=== PATIENT | female | born 1995 | race Hispanic/Latino ===

== ENCOUNTER 2017-10-12 21:28 | Emergency (ER) | payer SELFPAY ==
[2017-10-12 22:19] LABS: Bilirubin Negative (Negative); Blood, Urine Large (Negative); Clarity CLOUDY (Clear); Glucose, Urine (Dipstick) Negative (Negative); Leukocyte Moderate (Negative); Nitrite Negative (Negative); Protein, Urine (Dipstick) 30 mg/dL (Neg-Trace); Specific Gravity, Urine 1.013 (1.002-1.036); Urobilinogen 0.2 mg/dL (0.2-1.0)
[2017-10-12 22:20] LABS: Pregnancy Test - Urine (BHCG) Negative (Negative); Pregu Control Background? CLEAR/WHITE (CLR/WHITE); Pregu Control Bar Appear? YES (CONTROL BAR)
[2017-10-12 22:22] LABS: Specific Gravity 1.013 (1.002-1.036)
[2017-10-12 22:23] LABS: Bacteria/HPF None Seen HPF (None Seen); Hyaline Casts/LPF 0-3 HYALINE CAST LPF (0-3 Hyaline); RBC/HPF GREATER THAN 50-TNTC HPF (0-3); Squamous Epithelial 0-3 HPF (0-3); Yeast-AUWi Flag 20.9 (0-25.0)
== END 2017-10-12 23:03 | disposition home or self-care (01) ==
LOC: ERS 21:28
DX: N12 Tubulo-interstitial nephritis, not specified as acute or chronic (principal)
CPT/HCPCS: 81003; 81015; 81025; 87077; 87086; 87186; 94760

== ENCOUNTER 2019-07-24 16:16 | Emergency (ER) | payer MEDICAID, OTHER, SELFPAY ==
[2019-07-24 17:05] LABS: Bilirubin Negative (Negative); Blood, Urine Trace (Negative); Clarity Turbid (Clear); Glucose, Urine (Dipstick) Normal (Negative); Leukocyte 500 Leu/uL (Negative); Nitrite Negative (Negative); Protein, Urine (Dipstick) 20 mg/dL (Neg-Trace); RBC/HPF 0-3 HPF (0-3); Urobilinogen Normal mg/dL (Less than 2); WBC/HPF Greater than 50 HPF (0-3)
[2019-07-24 17:09] LABS: Bacteria/HPF 1+ HPF (None Seen); Transitional Epithelial 0-3 HPF (None Seen)
--- NOTE | 2019-07-24 17:33 | ULT ---
Exam: Limited OB ultrasound HISTORY: Abdominal pain. Pelvic pain. COMPARISON: None TECHNIQUE: Sagittal and transverse imaging of the gravid uterus is performed FINDINGS: Single intrauterine gestation. presentation is transverse. Head to the maternal left. heart tones with a rate of 149 bpm Posterior placenta. Placenta previa: Placenta appears to be low lying and abuts the expected location of the inner cervic al os. Limited evaluation of the cervix. biometry: BPD 3.13 cm, 15 weeks 6 days Head circumference 11.55 cm, 15 weeks 5 days Abdominal circumference 9.36 cm, 15 weeks 4 days Femur length 1.90 cm, 15 weeks 4 days Average age by sonography is 15 weeks 3 days Estimated delivery date by sonography is 01/12/2020 IMPRESSION: 1. Single intrauterine gestation. heart tones. Average age by sonography is 15 weeks 3 days 2. Posterior placenta. Low-lying placenta, abutting the expected location of the inner cervical os i s present. 3. Follow-up imaging at 18-20 weeks gestation to complete survey Transcribed Date/Time: 07/24/2019 6:14 PM
== END 2019-07-24 18:38 | disposition home or self-care (01) ==
LOC: ERS 16:16
DX: O23.42 Unspecified infection of urinary tract in pregnancy, second trimester (principal); Z3A.15 15 weeks gestation of pregnancy
CPT/HCPCS: 76815; 81003; 81015; 87077; 87086; 87186

== ENCOUNTER 2019-11-30 22:39 | Inpatient (IN) | payer OTHER ==
[2019-11-30 23:18] VITALS: BP 125/75; TEMP 99.2; BMI 43.1
[2019-11-30] MEDS ORDERED: hydrALAZINE 20 MG/ML VIAL SLOW IVP PRN (23:39)
[2019-11-30] MEDS ORDERED: Betamet Acet/Betamet Na Ph 30 MG/5 ML VIAL ONE (23:41)
[2019-12-01] MEDS ORDERED: hydrALAZINE 20 MG/ML VIAL SLOW IVP PRN (00:42)
[2019-12-01] MEDS ORDERED: Zolpidem Tartrate 5 MG TAB PO PRN (00:42)
[2019-12-01] MEDS ORDERED: Ondansetron PF 4 MG/2 ML Vial IVP PRN (00:42)
[2019-12-01] MEDS: Betamet Acet/Betamet Na Ph 30 MG/5 ML VIAL IM SCH ×2 (05:52→23:38)
--- NOTE | 2019-12-01 07:07 | HP ---
PRIMARY OB: Reginaldo Mazariegos MD CHIEF COMPLAINT: Contractions. HISTORY OF PRESENT ILLNESS: Patient is a 24-year-old G2, P1 female with an intrauterine at 34 weeks and a day, presenting to Labor and Delivery, complaining of constant back pain since Saturday and this morning of presentation reported that she is having difficulty walking because of the pain in the front. She reports that the pain is worse with moving and activity with rolling over in bed, getting out of bed. She also reports some underlying cramping. She has a history of a 35 week delivery with her last delivering spontaneously. She denies leakage of fluid, vaginal bleeding, fever, headache, nausea, or vomiting. PAST MEDICAL HISTORY: Negative. PAST SURGICAL HISTORY: She has had appendectomy and ear tubes. MEDICATIONS: She is on vitamins and iron. SOCIAL HISTORY: Denies drug, alcohol, or tobacco use. ALLERGIES: NO KNOWN DRUG ALLERGIES. OB LABS: Unavailable at time of dictation. She does report that she was borderline diabetic and has gestational diabetes and has been taking her blood sugars at home, which she reports have been in the mid 90s before breakfast and in the one teens after her meals. REVIEW OF SYSTEMS: Per HPI. PHYSICAL EXAMINATION: VITAL SIGNS: Blood pressure 125/75, pulse of 100, temperature 99.2, respiratory rate of 18. GENERAL: She appears to be in no acute distress. She is alert, oriented, cooperative, and pleasant to interact with. HEAD: Normocephalic and atraumatic. LUNGS: Clear to auscultation bilaterally. HEART: Has regular rate and rhythm. ABDOMEN: Gravid and soft. PELVIC: She does have some tenderness on the right pelvic region, more than the left, with deviation of the uterus to the opposite side. She also has some tenderness with deviation of the uterus in the region of the round ligament at the cornu and she reports that these are the pains that she has been feeling. On digital exam, she is 2 per nursing staff. She is 2 cm dilated, 50% effaced, and -3 station. heart tracing shows the fetus at the baseline in the 140s with moderate long-term variability, positive 15 x 15 accelerations, no decelerations. The tocometer showing irritability with contractions perhaps 4-6 minutes apart, but not consistently felt by the patient. ASSESSMENT AND PLAN: Patient is a 24-year-old female with an intrauterine at 34 weeks and a day with a history of spontaneous labor at 35 weeks with her previous , presenting with abdominal pain and back pain. This seems to be primarily musculoskeletal pain of , has some underlying contractions, and cervical dilation of 250 and -3 station. I am unsure how much dilation has occurred acutely versus over longer period of time. We have admitted her for steroids and further observation to delineate more clearly what was happening. The patient is sleeping comfortably at this time without any need for pain medication. We will be reevaluating for cervical change in the morning. In the meantime, Dr. Mazariegos will be her primary OB coming on tomorrow. Job ID: [id number]
[2019-12-01] MEDS ORDERED: Acetaminophen 500 MG TAB PO PRN (07:41)
[2019-12-01] MEDS ORDERED: Azithromycin 500 MG in Sodium Chloride 0.9% 250 ML 250 ML IVPB SCH (07:45)
--- NOTE | 2019-12-01 07:54 | ULT ---
ULTRASOUND OBSTETRICAL COMPLETE: DATE: 12/01/2019 HISTORY: 24-year-old female in third trimester with pelvic pain evaluate position and estimated weight FINDINGS: number: jauregui lie: Vertex Maternal cervix: Obscured Posterior. Placenta: Cannot evaluate for previa Amniotic fluid volume: RICHARD = 21cm heart rate: 155 bpm The following anatomy is visualized, with no evidence of anomalies: Bladder and stomach. The rest of anatomy was evaluated in detail. biometry: Biparietal diameter (BPD): 8.7 cm 35 w 2 d Head circumference (HC): 31.5 cm 35 w 3 d Abdominal circumference (AC): 31.1 cm 35 w 0 d Femur length (FL): 6.4 cm 33 w 2 d Average ultrasound age (AUA): 34 w 5 d Estimated date of delivery (PHILLIP): 01/07/2020 Estimated weight (EFW): 2475 g +/- 366 g IMPRESSION: 1) Live 3rd trimester intrauterine gestation. 2) Estimated gestational age of 34 weeks, 5 days 3) cephalic lie.
[2019-12-01] MEDS ORDERED: Terbutaline Sulfate 1 MG/ML VIAL SC SCH (08:15)
[2019-12-01] MEDS: Lactated Ringer's 1,000 ML IV SCH ×3 (08:30→23:45)
[2019-12-01] MEDS: Ampicillin 2 GM in Sodium Chloride 0.9% 100 ML IVPB SCH ×3 (08:30→20:31)
[2019-12-01 12:32] LABS: SARS-CoV-2 MS2 Positive; SARS-CoV-2 N Gene Negative; SARS-CoV-2 S Gene Negative; SARS-CoV-2 by NAA Not Detected (NotDetected); SARS-CoV-2 orf1ab Negative
[2019-12-02] MEDS ORDERED: Ampicillin 2 GM in Sodium Chloride 0.9% 100 ML IVPB SCH (03:00)
== END 2019-12-02 09:05 | disposition home health service (06) | DRG 833 ==
LOC: L&D/OP 22:39 → OBSVTOIN 12-01 00:26 → L&D 12-01 00:26
PROVIDERS: ADMIT Family Medicine; ATTEND Family Medicine
DX: O47.03 False labor before 37 completed weeks of gestation, third trimester (principal); Z20.828 Contact with and (suspected) exposure to other viral communicable diseases; O24.415 Gestational diabetes mellitus in pregnancy, controlled by oral hypoglycemic drugs; Z3A.34 34 weeks gestation of pregnancy
CPT/HCPCS: 76815; 87635; J0290; J0456; J0702; J3490; J7050; U0003

== ENCOUNTER 2019-12-18 01:10 | Inpatient (IN) | payer OTHER ==
[2019-12-18 01:41] VITALS: BMI 43.9
[2019-12-18] MEDS ORDERED: hydrALAZINE 20 MG/ML VIAL SLOW IVP PRN ×3 (03:23→17:46)
[2019-12-18] MEDS ORDERED: Lactated Ringer's 1,000 ML IV SCH ×4 (04:30→07:28)
[2019-12-18] MEDS ORDERED: NS w/ Oxytocin 10 units 500 ML IV SCH (07:28)
[2019-12-18] MEDS ORDERED: Ondansetron PF 4 MG/2 ML Vial IVP PRN ×2 (07:28→17:46)
[2019-12-18] MEDS ORDERED: NS / Oxytocin 40 units/1000ml 1,000 ML IV PRN (07:28)
[2019-12-18] MEDS ORDERED: Ibuprofen 800 MG TAB PO PRN (07:28)
[2019-12-18] MEDS ORDERED: Promethazine HCl 25 MG/ML VIAL IM PRN ×2 (07:28→17:46)
[2019-12-18] MEDS ORDERED: Lidocaine 1% (PF) 30 ML VIAL SC PRN (07:28)
[2019-12-18] MEDS ORDERED: HYDROcodone/Acetaminophen 5/325 mg Tablet PO PRN ×3 (07:28→17:46)
[2019-12-18] MEDS ORDERED: Ampicillin 2 GM VIAL ONE (07:46)
[2019-12-18 07:55] LABS: Hemoglobin 12.7 g/dL (12.0-16.0); Mean Corpuscular HGB CONC 32.5 g/dL (32.0-36.0); Mean Corpuscular Hemoglobin 26.6 pg (27.0-31.0); Mean Corpuscular Volume 81.8 fL (78.0-98.0); Mean Platelet Volume 8.9 fL (7.4-10.4); Platelet Count 277 thou/uL (130-400); RBC Distribution Width 16.8 % (11.5-14.5); Red Blood Cell (RBC) Count 4.76 mill/uL (4.20-5.40); White Blood Cell (WBC) Count 11.8 thou/uL (4.8-10.8)
[2019-12-18] MEDS ORDERED: Ampicillin 2 GM in Sodium Chloride 0.9% 100 ML IVPB SCH (08:00)
[2019-12-18 08:35] LABS: Syphilis Antibody Nonreactive (Nonreactive); Syphilis Antibody Index 0.04 S/CO (<1.00 Non-Reactive)
[2019-12-18 08:36] LABS: HBSAg Index 0.19 S/CO (0-0.99); Hep B Surf Ag Non-Reactive S/CO (NonReactive)
[2019-12-18] MEDS: Butorphanol Tartrate 1 MG/ML VIAL SLOW IVP PRN ×2 (12:45→15:45)
[2019-12-18] MEDS ORDERED: Methylergonovine 0.2 MG/ML VIAL ONE (15:40)
[2019-12-18] MEDS ORDERED: Carboprost 250 MCG/ML AMP ONE (15:45)
[2019-12-18] MEDS: Misoprostol 200 MCG TAB ONE ×2 (16:08→16:09)
[2019-12-18] MEDS ORDERED: NS / Oxytocin 40 units/1000ml 1,000 ML IV SCH (17:46)
[2019-12-18] MEDS ORDERED: Lanolin Ointment 7 GM TUBE TOP PRN (17:46)
[2019-12-18] MEDS ORDERED: Bisacodyl 10 MG SUPP PR PRN (17:46)
[2019-12-18] MEDS ORDERED: Milk Of Magnesia 30 ML UDCUP PO PRN (17:46)
[2019-12-18] MEDS ORDERED: Misoprostol 200 MCG TAB PO SCH (20:00)
[2019-12-18] MEDS: Ibuprofen 800 MG TAB PO SCH (21:34)
[2019-12-18] MEDS: Docusate Calcium (SURFAK) 240 MG CAP PO SCH (21:34)
[2019-12-18] MEDS ORDERED: Benzocaine-Menthol 82.5 ML CAN TOP PRN (21:38)
[2019-12-19] MEDS: Ibuprofen 800 MG TAB PO SCH ×3 (05:42→22:04)
[2019-12-19 08:07] LABS: Hemoglobin 11.6 g/dL (12.0-16.0); Mean Corpuscular HGB CONC 33.3 g/dL (32.0-36.0); Mean Corpuscular Hemoglobin 26.7 pg (27.0-31.0); Mean Corpuscular Volume 80.1 fL (78.0-98.0); Mean Platelet Volume 8.5 fL (7.4-10.4); Platelet Count 241 thou/uL (130-400); RBC Distribution Width 16.6 % (11.5-14.5); Red Blood Cell (RBC) Count 4.37 mill/uL (4.20-5.40); White Blood Cell (WBC) Count 14.9 thou/uL (4.8-10.8)
[2019-12-19] MEDS ORDERED: Adacel (T-DAP) 0.5 ML SYRINGE IM ONE (09:00)
[2019-12-19] MEDS: Docusate Calcium (SURFAK) 240 MG CAP PO SCH ×2 (09:23→22:04)
[2019-12-19] MEDS: Ferrous Sulfate 325 MG TAB PO SCH ×2 (09:23→18:41)
[2019-12-19] MEDS: Prenatal Vitamin 1 TAB PO SCH (10:00)
[2019-12-19 14:40] LABS: SARS-CoV-2 MS2 Positive; SARS-CoV-2 N Gene Positive; SARS-CoV-2 S Gene Negative; SARS-CoV-2 by NAA Indeterminate (NotDetected); SARS-CoV-2 orf1ab Negative
[2019-12-20] MEDS: Ibuprofen 800 MG TAB PO SCH ×2 (05:49→14:02)
[2019-12-20 08:39] VITALS: BP 121/68; TEMP 98.5
[2019-12-20] MEDS: Prenatal Vitamin 1 TAB PO SCH (08:39)
[2019-12-20] MEDS: Docusate Calcium (SURFAK) 240 MG CAP PO SCH (08:40)
[2019-12-20] MEDS: Ferrous Sulfate 325 MG TAB PO SCH ×2 (08:40→16:51)
== END 2019-12-20 19:00 | disposition home or self-care (01) | DRG 807 ==
LOC: L&D/OP 01:10 → L&D 07:28 → 3SE 18:47
PROVIDERS: ADMIT Family Medicine; ATTEND Family Medicine
PROC: 10E0XZZ Delivery of Products of Conception, External Approach (ICD-10-PCS; principal; 2019-12-18)
PROC: 0HQ9XZZ Repair Perineum Skin, External Approach (ICD-10-PCS; 2019-12-18)
DX: O60.14X0 Preterm labor third trimester with preterm delivery third trimester, not applicable or unspecified (principal); Z37.0 Single live birth; Z3A.36 36 weeks gestation of pregnancy; O24.420 Gestational diabetes mellitus in childbirth, diet controlled; O99.214 Obesity complicating childbirth; E66.9 Obesity, unspecified; Z20.828 Contact with and (suspected) exposure to other viral communicable diseases; O75.89 Other specified complications of labor and delivery; O70.0 First degree perineal laceration during delivery
CPT/HCPCS: 36415; 36416; 85027; 86780; 86850; 86900; 86901; 87340; 87635; 99285; J0290; J0595; J2210; J2590; J3490; U0003

== ENCOUNTER 2020-06-23 08:21 | Outpatient (CLI) | payer OTHER | END 2020-06-23 08:22 | disposition home or self-care (01) | LOC: BICULT 08:21 | PROVIDERS: ATTEND Family Medicine | DX: O09.92 Supervision of high risk pregnancy, unspecified, second trimester (principal); Z3A.19 19 weeks gestation of pregnancy | CPT/HCPCS: 76805 ==

== ENCOUNTER 2020-10-05 07:02 | Outpatient (CLI) | payer OTHER | END 2020-10-05 07:03 | disposition home or self-care (01) | LOC: BICULT 07:02 | PROVIDERS: ATTEND Family Medicine | DX: O09.93 Supervision of high risk pregnancy, unspecified, third trimester (principal); Z3A.34 34 weeks gestation of pregnancy | CPT/HCPCS: 76816 ==

== ENCOUNTER 2021-03-11 12:27 | Emergency (ER) | payer OTHER ==
[2021-03-11] MEDS ORDERED: Ketorolac Tromethamine 30 MG/ML VIAL ONE (13:28)
[2021-03-11] MEDS ORDERED: Acetaminophen 500 MG TAB ONE (13:28)
[2021-03-11 13:39] LABS: MONO NEGATIVE CONTROL ZONE White (Negative) (White); MONO POSITIVE CONTROL Pink Line (Positive) (PINK/RED); Mononucleosis NEGATIVE (NEGATIVE)
[2021-03-11] MEDS ORDERED: Bicillin LA 1.2 MILLION UNITS/2 ML SYRINGE ONE (14:16)
== END 2021-03-11 14:43 | disposition home or self-care (01) ==
LOC: ERS 12:27
DX: J02.0 Streptococcal pharyngitis (principal)
CPT/HCPCS: 36415; 86308; 87430; 96372; 99284; J0561; J1885

== ENCOUNTER 2024-01-21 16:01 | Emergency (ER) | payer OTHER ==
[2024-01-21 16:46] LABS: #Basophils 0.03 10x3/uL (0.0-0.2); %Basophils 0.4 % (0.0-1.0); %Eosinophils 1.9 % (0.0-10.0); %Lymphocytes 25.6 % (21.0-51.0); %Neutrophils 61.8 % (42.0-75.0); Hematocrit 44.4 % (36.0-47.0); Hemoglobin 14.4 g/dL (12.0-16.0); Mean Corpuscular HGB CONC 32.4 g/dL (32.0-36.0); Mean Corpuscular Hemoglobin 26.9 pg (27.0-31.0); Mean Platelet Volume 10.3 fL (7.4-10.4); Platelet Count 299 10x3/uL (130-400); RBC Distribution Width 12.7 % (11.5-14.5); Red Blood Cell (RBC) Count 5.35 mill/uL (4.20-5.40)
[2024-01-21 17:13] LABS: ALT (SGPT) 32 U/L (8-55); AST (SGOT) 28 U/L (5-34); Albumin 3.5 g/dL (3.5-5.0); Alkaline Phosphatase 126 U/L (40-110); Anion Gap 14 mmol/L (10-20); BUN (Urea Nitrogen) 10 mg/dL (7.0-18.7); Bilirubin, Total 0.2 mg/dL (0.2-1.2); Calc. Creatinine Clearance 0 mL/min (70-130); Calcium 9.2 mg/dL (7.8-10.44); Carbon Dioxide 23 mmol/L (22-29); Chloride 103 mmol/L (98-107); Estimated GFR 107; Globulin 4.1 g/dL (2.4-3.5); Glucose 297 mg/dL (70-105); Lipase 38 U/L (8-78); Potassium 4.1 mmol/L (3.5-5.1); Protein, Total 7.6 g/dL (6.0-8.3); Sodium 136 mmol/L (136-145)
[2024-01-21 17:22] LABS: Pregnancy Test - Urine (BHCG) Negative (Negative); Pregu Control Background? CLEAR/WHITE (CLR/WHITE); Pregu Control Bar Appear? YES (CONTROL BAR)
[2024-01-21 17:24] LABS: Specific Gravity 1.052 (1.002-1.036)
[2024-01-21 17:43] LABS: Clarity Clear (Clear); Specific Gravity, Urine 1.052 (1.002-1.036)
[2024-01-21 17:45] LABS: Leukocyte Unable to Interpret Leu/uL (Negative)
[2024-01-21 17:46] LABS: Bilirubin Unable to Interpret (Negative); Blood, Urine Unable to Interpret (Negative); CAUTI Indications for Culture Dysuria,urgency,freq; Glucose, Urine (Dipstick) Unable to Interpret mg/dL (Negative); Ketone, Urine Unable to Interpret mg/dL (Negative); Nitrite Unable to Interpret (Negative); Protein, Urine (Dipstick) Unable to Interpret mg/dL (Neg-Trace); RBC/HPF None Seen HPF (0-3); Urobilinogen UNABLE TO INTERPRET mg/dL (Less than 2)
[2024-01-21 17:48] LABS: Bacteria/HPF Rare-Few HPF (None Seen)
[2024-01-21 17:49] LABS: Urine Culture Reflex No No
== END 2024-01-21 18:43 | disposition home or self-care (01) ==
LOC: ERS 16:01
DX: N30.90 Cystitis, unspecified without hematuria (principal)
CPT/HCPCS: 36415; 80053; 81001; 81025; 83690; 85025; 87086; 99283